=== PATIENT | male | born 1930 | race Caucasian/White ===

== ENCOUNTER 2018-03-06 18:18 | Inpatient (IN) ==
[2018-03-06] MEDS ORDERED: HYDROmorphone PF Inj 0.5 MG/0.5 ML Syringe IV.PUSH STA (18:40)
--- NOTE | 2018-03-06 18:40 | ED ---
HPI General Chief Complaint: Fall Stated Complaint: Evac/Fall Time Seen by Provider: 03/06/18 18:27 Source: patient Mode of arrival: EMS Limitations: no limitations History of Present Illness HPI Narrative: 87-year-old male with history of hypertension, atrial fib, hyperlipidemia, GERD, and questionable COPD presents emergency department via evac for evaluation of left hip pain that started after a trip and fall that occurred just prior to arrival. Patient states he tripped and fell landing on his left hip. EVAC gave patient 10 mg morphine prior to arrival. Denies head or neck trauma. Denies neck or back pain. He denies numbness or tingling of the extremities. States his pain is moderate to severe, worse with movement. Currently, position of comfort is leg externally rotated with knee slightly flexed. MD complaint: fall Related Data Home Medications Medication Instructions Recorded Confirmed apixaban [Eliquis] 2.5 mg PO BID 03/06/18 03/06/18 atorvastatin 40 mg PO DAILY 03/06/18 03/06/18 fenofibrate 40 mg PO DAILY 03/06/18 03/06/18 losartan 25 mg PO DAILY 03/06/18 03/06/18 metoprolol tartrate 25 mg PO BID 03/06/18 03/06/18 pantoprazole [Protonix] 40 mg PO DAILY 03/06/18 03/06/18 sertraline 50 mg PO DAILY 03/06/18 03/06/18 Allergies Allergy/AdvReac Type Severity Reaction Status Date / Time No Known Allergies Allergy Unverified 03/06/18 18:37 Review of Systems ROS: all other systems reviewed are negative PMFSH Medical History Medical History A-fib (Acute) CAMELIA (acute kidney injury) (Acute) Abdominal pain (Acute) HLD (hyperlipidemia) (Acute) Hypertension (Acute) SunDown syndrome (Acute) Surgical history unknown (Acute) Family History Family History Other Family history normal Social History Social History Substance History: No History of Abuse Second Hand Smoke Exposure: No Smoking Status: Never smoker How Often Do You Have a Drink Containing Alcohol: 4 or more times a week Recent Travel in [facility] [[email or web address]] within the Last 8 Weeks: No Recent Out of Country Travel within the Last 8 Weeks: No Immunization History Tetanus Immunization: Unsure Hx Influenza Vaccine This Season: Yes Exam Narrative Exam Narrative: GENERAL: Well-developed, well-nourished SKIN: Focused skin assessment warm/dry. HEAD: Atraumatic. Normocephalic. EYES: Pupils equal and round. No scleral icterus. No injection or drainage. ENT: No nasal bleeding or discharge. Mucous membranes pink and moist. NECK: Trachea midline. No JVD. CARDIOVASCULAR: Regular rate and rhythm. No murmur appreciated. RESPIRATORY: No accessory muscle use. Faint rhonchi breath sounds equal bilaterally. MUSCULOSKELETAL: No obvious deformities. No clubbing. No cyanosis. No edema. Left hip tender to palpation, left leg externally rotated and slightly shortened with knee slightly flexed, dorsalis pedis pulses present and bounding , neurovascularly intact bilateral lower extremities NEUROLOGICAL: Awake and alert. No obvious cranial nerve deficits. Motor grossly within normal limits. Normal speech. PSYCHIATRIC: Appropriate mood and affect; insight and judgment normal. Course Initial Documented Vital Signs Temperature 98.6 F 03/06/18 18:25 Pulse Rate 103 H 03/06/18 18:25 Respiratory Rate 14 03/06/18 18:25 Blood Pressure 232/152 H 03/06/18 18:25 Pulse Oximetry 97 03/06/18 18:25 Last Documented Vital Signs Temperature 98 F 03/07/18 08:00 Pulse Rate 79 03/07/18 10:21 Respiratory Rate 18 03/07/18 10:21 Blood Pressure 121/75 03/07/18 08:00 Pulse Oximetry 93 L 03/07/18 04:00 Medical Decision Making [facility] Narrative Medical decision making narrative: 87-year-old male presents emergency department via EVAC after a mechanical fall that occurred just prior to arrival. EVAC states patient has a history of hypertension, atrial fibrillation , hyperlipidemia, GERD, and questionable COPD. Vital signs demonstrate elevated blood pressure. Will monitor. Hydralazine administered. Patient given 10 mg morphine by EVAC. Patient continues to have moderate to severe pain. Ativan and Dilaudid administered for pain. CXR is concerning for PNA. Will treat with rocephin and azithromycin. Labs significant for WBCs at 14.6. Remaining labs stable. I spoke with Dr. Payne who recommended hold Bennie. I advised him that he may have pneumonia and will be treated as such. He stated that is patient may be ready tomorrow afternoon for surgery that he should remain NPO afte rmidnight , otherwise, medically stabilize, then surgery. Traction for comfort. Differential Diagnosis Differential Diagnosis: Left hip fracture, left leg fracture, left hip displacement Lab Data Result diagrams: 03/07/18 03:23 03/07/18 05:53 Lab Results 03/06/18 03/06/18 03/06/18 Range/Units 18:40 18:40 18:40 WBC 14.6 H (4.0-11.0) th/mm3 RBC 3.95 L (4.50-5.90) mil/mm3 Hgb 11.9 L (13.0-17.0) gm/dL Hct 36.3 L (39.0-51.0) % MCV 91.9 (80.0-100.0) fL MCH 30.1 (27.0-34.0) pg MCHC 32.7 (32.0-36.0) % RDW 15.0 (11.6-17.2) % Plt Count 274 (150-450) th/mm3 MPV 9.7 (7.0-11.0) fL Neut % (Auto) 90.2 H (16.0-70.0) % Lymph % (Auto) 4.2 L (9.0-44.0) % [place] % (Auto) 4.9 (0.0-8.0) % Eos % (Auto) 0.4 (0.0-4.0) % Baso % (Auto) 0.3 (0.0-2.0) % Neut # (Auto) 13.2 H (1.8-7.7) th/mm3 Lymph # (Auto) 0.6 L (1.0-4.8) th/mm3 [place] # (Auto) 0.7 (0.0-0.9) th/mm3 Eos # (Auto) 0.1 (0.0-0.4) th/mm3 Baso # (Auto) 0.0 (0.0-0.2) th/mm3 WBC Differential . Differential Comment Auto diff final PT 12.1 H (9.8-11.6) sec INR 1.2 Ratio APTT 28.1 (24.3-30.1) sec Sodium 141 (136-145) meq/L Potassium 4.0 (3.5-5.1) meq/L Chloride 108 H (98-107) meq/L Carbon Dioxide 25.9 (21.0-32.0) meq/L Anion Gap 7 (5-15) meq/L BUN 15 (7-18) mg/dL Creatinine 1.03 (0.60-1.30) mg/dL Estimated GFR 68 L (>89) mL/min Random Glucose 89 (74-106) mg/dL Calcium 8.2 L (8.5-10.1) mg/dL Total Bilirubin 0.6 (0.2-1.0) mg/dL AST 23 (15-37) U/L ALT 17 (12-78) U/L Alkaline Phosphatase 64 (45-117) U/L Total Protein 6.3 L (6.4-8.2) g/dL Albumin 3.2 L (3.4-5.0) g/dL Urine Color (Yellw/Straw) Urine Clarity (Clear) Urine pH (5.0-8.5) Ur Specific [place] (1.002-1.035) Urine Protein (Neg-Trace) mg/dL Urine Glucose (UA) (Negative) mg/dL Urine Ketones (Negative) mg/dL Urine Occult Blood (Negative) Urine Nitrate (Negative) Urine Bilirubin (Negative) Urine Urobilinogen (Less than 2) mg/dL Ur Leukocyte Esterase (Negative) Urine RBC (0-3) /hpf Urine WBC (0-5) /hpf Ur Squamous Epith Cells (0-5) /hpf Hyaline Casts (0-3) /lpf Micro UA Comment Urine Culture Comments Blood Type Blood Type Recheck Antibody Screen 03/06/18 03/07/18 03/07/18 Range/Units 20:25 03:23 03:23 WBC 11.2 H (4.0-11.0) th/mm3 RBC 3.88 L (4.50-5.90) mil/mm3 Hgb 12.1 L (13.0-17.0) gm/dL Hct 35.3 L (39.0-51.0) % MCV 90.9 (80.0-100.0) fL MCH 31.1 (27.0-34.0) pg MCHC 34.2 (32.0-36.0) % RDW 14.8 (11.6-17.2) % Plt Count 270 (150-450) th/mm3 MPV 9.2 (7.0-11.0) fL Neut % (Auto) 86.8 H (16.0-70.0) % Lymph % (Auto) 5.5 L (9.0-44.0) % [place] % (Auto) 6.9 (0.0-8.0) % Eos % (Auto) 0.2 (0.0-4.0) % Baso % (Auto) 0.6 (0.0-2.0) % Neut # (Auto) 9.7 H (1.8-7.7) th/mm3 Lymph # (Auto) 0.6 L (1.0-4.8) th/mm3 [place] # (Auto) 0.8 (0.0-0.9) th/mm3 Eos # (Auto) 0.0 (0.0-0.4) th/mm3 Baso # (Auto) 0.1 (0.0-0.2) th/mm3 WBC Differential . Differential Comment Auto diff final PT (9.8-11.6) sec INR Ratio APTT (24.3-30.1) sec Sodium (136-145) meq/L Potassium (3.5-5.1) meq/L Chloride (98-107) meq/L Carbon Dioxide (21.0-32.0) meq/L Anion Gap (5-15) meq/L BUN (7-18) mg/dL Creatinine (0.60-1.30) mg/dL Estimated GFR (>89) mL/min Random Glucose (74-106) mg/dL Calcium (8.5-10.1) mg/dL Total Bilirubin (0.2-1.0) mg/dL AST (15-37) U/L ALT (12-78) U/L Alkaline Phosphatase (45-117) U/L Total Protein (6.4-8.2) g/dL Albumin (3.4-5.0) g/dL Urine Color Yellow (Yellw/Straw) Urine Clarity Clear (Clear) Urine pH 7.0 (5.0-8.5) Ur Specific [place] 1.017 (1.002-1.035) Urine Protein Negative (Neg-Trace) mg/dL Urine Glucose (UA) Negative (Negative) mg/dL Urine Ketones Negative (Negative) mg/dL Urine Occult Blood Negative (Negative) Urine Nitrate Negative (Negative) Urine Bilirubin Negative (Negative) Urine Urobilinogen 4 or greater (Less than 2) mg/dL Ur Leukocyte Esterase Negative (Negative) Urine RBC 1 (0-3) /hpf Urine WBC 1 (0-5) /hpf Ur Squamous Epith Cells <1 (0-5) /hpf Hyaline Casts 3 (0-3) /lpf Micro UA Comment Culture not ind Urine Culture Comments Culture not ind Blood Type A Positive Blood Type Recheck Required Antibody Screen Negative 03/07/18 Range/Units 05:53 WBC (4.0-11.0) th/mm3 RBC (4.50-5.90) mil/mm3 Hgb (13.0-17.0) gm/dL Hct (39.0-51.0) % MCV (80.0-100.0) fL MCH (27.0-34.0) pg MCHC (32.0-36.0) % RDW (11.6-17.2) % Plt Count (150-450) th/mm3 MPV (7.0-11.0) fL Neut % (Auto) (16.0-70.0) % Lymph % (Auto) (9.0-44.0) % [place] % (Auto) (0.0-8.0) % Eos % (Auto) (0.0-4.0) % Baso % (Auto) (0.0-2.0) % Neut # (Auto) (1.8-7.7) th/mm3 Lymph # (Auto) (1.0-4.8) th/mm3 [place] # (Auto) (0.0-0.9) th/mm3 Eos # (Auto) (0.0-0.4) th/mm3 Baso # (Auto) (0.0-0.2) th/mm3 WBC Differential Differential Comment PT (9.8-11.6) sec INR Ratio APTT (24.3-30.1) sec Sodium 141 (136-145) meq/L Potassium 4.3 (3.5-5.1) meq/L Chloride 108 H (98-107) meq/L Carbon Dioxide 24.3 (21.0-32.0) meq/L Anion Gap 9 (5-15) meq/L BUN 15 (7-18) mg/dL Creatinine 0.98 (0.60-1.30) mg/dL Estimated GFR 72 L (>89) mL/min Random Glucose 89 (74-106) mg/dL Calcium 8.5 (8.5-10.1) mg/dL Total Bilirubin (0.2-1.0) mg/dL AST (15-37) U/L ALT (12-78) U/L Alkaline Phosphatase (45-117) U/L Total Protein (6.4-8.2) g/dL Albumin (3.4-5.0) g/dL Urine Color (Yellw/Straw) Urine Clarity (Clear) Urine pH (5.0-8.5) Ur Specific [place] (1.002-1.035) Urine Protein (Neg-Trace) mg/dL Urine Glucose (UA) (Negative) mg/dL Urine Ketones (Negative) mg/dL Urine Occult Blood (Negative) Urine Nitrate (Negative) Urine Bilirubin (Negative) Urine Urobilinogen (Less than 2) mg/dL Ur Leukocyte Esterase (Negative) Urine RBC (0-3) /hpf Urine WBC (0-5) /hpf Ur Squamous Epith Cells (0-5) /hpf Hyaline Casts (0-3) /lpf Micro UA Comment Urine Culture Comments Blood Type Blood Type Recheck Antibody Screen Imaging Data Radiologist's impression: Chest X-Ray 03/06/18 18:37 CONCLUSION: Patchy parenchymal consolidation of both lungs, upper lobe predominant on the right and more generalized but with a basilar predominance on the left. Femur X-Ray 03/06/18 18:37 CONCLUSION: Acute fracture distally of the femoral neck with medial angulation deformity. Pelvis X-Ray 03/06/18 18:37 CONCLUSION: Intact pelvis. Discharge Plan Discharge Disposition Patient Disposition: 30 Still Patient Discharge Condition Condition: Stable Discharge Details Diagnosis: Femur fracture, left, Pneumonia Physicians Team ED Provider: Yimi Uribe ED Midlevel Provider: Anay Birch Primary Care Provider: Jigna Harrison Attending Provider: Ruddy Maldonado Other Providers: Maulik Payne Status ED Status: Left Department Discharge Information Discharge Date/Time: 03/07/18 01:24
[2018-03-06 19:23] LABS: Activated Partial Thrombo Time 28.1 sec (24.3-30.1); INR 1.2 Ratio; Prothrombin Time 12.1 sec (9.8-11.6)
--- NOTE | 2018-03-06 19:31 | XR ---
EXAM DATE: 03/06/2018 7:24 PM EDT AGE/SEX: 87 years / Male INDICATIONS: Evaluate for pneumonia, pneumothorax, or commiuncable disease. CLINICAL DATA: This is the patient's initial encounter. Patient reports that signs and symptoms have been present for 1 day and indicates a pain score of 0/10. MEDICAL/SURGICAL HISTORY: None. None. COMPARISON: [facility] – [place], CTA THORACIC ABDOMINAL AORTA W 3D RECON, 01/23/2018. [facility] [place], CHEST SINGLE AP, 01/23. . FINDINGS: Patchy bilateral parenchymal consolidation present, fairly diffuse on the left and upper lobe predomi nant on the right. No pleural effusion seen. No pneumothorax. Patient has old left rib fractures. Heart size upper limits of normal, similar to before. CONCLUSION: Patchy parenchymal consolidation of both lungs, upper lobe predominant on the right and more generali zed but with a basilar predominance on the left. Electronically signed by: Elder Woodward MD 03/06/2018 7:30 PM EDT
[2018-03-06 19:32] LABS: Baso % (Auto) 0.3 % (0.0-2.0); Eos # (Auto) 0.1 th/mm3 (0.0-0.4); Eos % (Auto) 0.4 % (0.0-4.0); Hematocrit 36.3 % (39.0-51.0); Hemoglobin 11.9 gm/dL (13.0-17.0); Lymph # (Auto) 0.6 th/mm3 (1.0-4.8); Lymph % (Auto) 4.2 % (9.0-44.0); Mean Corpuscular HGB Conc 32.7 % (32.0-36.0); Mean Corpuscular Hemoglobin 30.1 pg (27.0-34.0); Mean Corpuscular Volume 91.9 fL (80.0-100.0); Mean Platelet Volume 9.7 fL (7.0-11.0); Mono # (Auto) 0.7 th/mm3 (0.0-0.9); Mono % (Auto) 4.9 % (0.0-8.0); Neut # (Auto) 13.2 th/mm3 (1.8-7.7); Neut % (Auto) 90.2 % (16.0-70.0); Platelet Count 274 th/mm3 (150-450); Red Blood Count 3.95 mil/mm3 (4.50-5.90); White Blood Count 14.6 th/mm3 (4.0-11.0)
[2018-03-06 19:33] LABS: Albumin 3.2 g/dL (3.4-5.0); Anion Gap 7 meq/L (5-15); Aspartate Aminotransferase 23 U/L (15-37); Blood Urea Nitrogen 15 mg/dL (7-18); Calcium 8.2 mg/dL (8.5-10.1); Carbon Dioxide 25.9 meq/L (21.0-32.0); Chloride 108 meq/L (98-107); Glomerular Filtration Rate 68 mL/min (>89); Glucose,Random 89 mg/dL (74-106); Sodium 141 meq/L (136-145)
[2018-03-06 19:35] LABS: Alanine Aminotransferase 17 U/L (12-78)
[2018-03-06 19:37] LABS: Alkaline Phosphatase 64 U/L (45-117); Total Protein 6.3 g/dL (6.4-8.2)
--- NOTE | 2018-03-06 19:39 | XR ---
EXAM DATE: 03/06/2018 7:27 PM EDT AGE/SEX: 87 years / Male INDICATIONS: Left hip and pelvic pain post fall today CLINICAL DATA: This is the patient's initial encounter. Patient reports that signs and symptoms have been present for 1 day and indicates a pain score of 10/10. MEDICAL/SURGICAL HISTORY: None. None. COMPARISON: [facility] [place], FEMUR LEFT 2V, 03/06/2018. . FINDINGS: The bony pelvis is intact and has normal morphology. No subluxation of either hip. 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 CONCLUSION: Intact pelvis. Electronically signed by: Elder Woodward MD 03/06/2018 7:38 PM EDT
--- NOTE | 2018-03-06 19:40 | XR ---
EXAM DATE: 03/06/2018 7:25 PM EDT AGE/SEX: 87 years / Male INDICATIONS: Left proximal femur pain post fall today CLINICAL DATA: This is the patient's initial encounter. Patient reports that signs and symptoms have been present for 1 day and indicates a pain score of 10/10. MEDICAL/SURGICAL HISTORY: None. None. COMPARISON: [facility] [place], PELVIS AP 1V, 03/06/2018. . FINDINGS: Supratrochanteric fracture seen of the left femoral neck with medial angulation deformity. The head/a rticular surfaces appear intact. No subluxations. Atherosclerotic femoral artery. CONCLUSION: Acute fracture distally of the femoral neck with medial angulation deformity. Electronically signed by: Elder Woodward MD 03/06/2018 7:39 PM EDT
[2018-03-06] MEDS ORDERED: Azithromycin Inj 500 MG in Sodium Chlor 0.9% Inj 250 ML IV.SIG ONE (19:58)
[2018-03-06 20:50] LABS: Bilirubin,Urine Negative (Negative); Clarity,Urine Clear (Clear); Color,Urine Yellow (Yellw/Straw); Glucose,Urine (UA) Negative (Negative); Hyaline Casts,Urine 3 /lpf (0-3); Leukocyte Esterase,Urine Negative (Negative); Nitrite,Urine Negative (Negative); Specific Gravity,Urine 1.017 (1.002-1.035); Squamous Epithelial Cell,Urine <1 /hpf (0-5); Urobilinogen,Urine 4 or Greater mg/dL (Less than 2)
[2018-03-06] MEDS ORDERED: Bisacodyl 10 MG Supp RECTAL PRN (21:26)
--- NOTE | 2018-03-06 22:37 | P.HP ---
History of Present Illness Service: [facility] Primary Care Physician: Jigna Harrison MD History of Present Illness: 87-year-old male with a past medical history significant for hypertension, atrial fibrillation anticoagulated on Eliquis and hyperlipidemia presents to the emergency department for the evaluation of a fall. The patient reports that he tripped and fell landing on his left hip. He denies any head or neck trauma. No numbness or tingling of the extremities. Complains of severe pain in his left hip. Denies chest pain or shortness of breath. No abdominal pain. No nausea/vomiting/diarrhea. No fever/chills. Inpatient Certification: I certify that the inpatient services were ordered in accordance with Medicare regulations governing the order. This includes certification that hospital inpatient services are reasonable and necessary and in the case of services not specified as inpatient-only under 42 CFR 419.22(n), that they are appropriately provided as inpatient services in accordance to with the 2-midnight benchmark under 43 CFR 412.3(e) Estimated Total Length of Stay (Days): 3 Plans for Post Hospital Care: Not yet determined Review of Systems All other systems reviewed negative except as stated in HPI PMFSH - History History Provided By: Patient, Route Relief Driver / EMT - Medical / Surgical Hx Neg / Unobtainable Surgical History: No Previous Surgery - Medical History Medical History: Medical History (Last Updated 03/06/18 @ 18:37 by Britt Velásquez) A-fib CAMELIA (acute kidney injury) Abdominal pain HLD (hyperlipidemia) Hypertension SunDown syndrome Surgical history unknown - Family History Family History: Family History (Last Updated 03/06/18 @ 22:31 by Maida Carroll MD) Other Family history normal - Tobacco History Smoking Status: Former smoker - Alcohol History How Often Do You Have a Drink Containing Alcohol: Monthly or less - Substance Use History Substance History: No History of Abuse - Travel History Recent Travel in the [place] Within the Last 8 Weeks: No Recent Travel Out of the Country Within the Last 8 Weeks: No - Immunization History Tetanus Immunization: Unsure Hx Influenza Vaccine This Season: Yes Medications and Allergies Active Medications: Active Medications Al Hydroxide/Mg Hydroxide (Milk Of Magnyasmin Liq) 30 ml PO Q12H PRN PRN Reason: Mild Constipation Albuterol (Duoneb Neb (Albino)) 1 ampul NEB Q6HR NEB ALBINO Last Admin: 03/06/18 21:58 Dose: Not Given Albuterol (Duoneb Neb (Prn)) 1 ampul NEB Q2HR NEB PRN PRN Reason: SHORTNESS OF BREATH/WHEEZING Atorvastatin Calcium (Lipitor) 40 mg PO DAILY [facility] Bisacodyl (Dulcolax Supp) 10 mg RECTAL DAILY PRN PRN Reason: SEVERE CONSITIPATION Fenofibrate (Tricor) 48 mg PO DAILY [facility] Azithromycin 500 mg/ Sodium (Chloride) 250 mls @ 250 mls/hr IV.SIG Q24H ALBINO Ceftriaxone Sodium 1,000 mg/ (Sodium Chloride) 100 mls @ 200 mls/hr IV.SIG Q24H ALBINO Lactulose (Lactulose Liq) 30 ml PO DAILY PRN PRN Reason: SEVERE CONSITIPATION Losartan Potassium (Cozaar) 25 mg PO DAILY [facility] Metoprolol Tartrate (Lopressor) 25 mg PO BID [facility] Morphine Sulfate (Morphine Inj) 2 mg IV.PUSH Q3H PRN PRN Reason: pain > 4 Pantoprazole Sodium (Protonix) 40 mg PO DAILY [facility] Prochlorperazine Edisylate (Compazine Inj) 5 mg IV.PUSH Q4H PRN PRN Reason: NAUSEA OR VOMITING Sennosides (Senokot) 17.2 mg PO Q12H PRN PRN Reason: Moderate Constipation Sertraline HCl (Zoloft) 50 mg PO DAILY [facility] Sodium Chloride (Ns Flush) 2 ml IV.FLUSH UNSCH PRN PRN Reason: FLUSH AFTER USING IV ACCESS Allergies Allergy/AdvReac Type Severity Reaction Status Date / Time No Known Allergies Allergy Unverified 03/06/18 18:37 Home Medications Medication Instructions Recorded Confirmed Type apixaban [Eliquis] 2.5 mg PO BID 03/06/18 03/06/18 History atorvastatin 40 mg PO DAILY 03/06/18 03/06/18 History fenofibrate 40 mg PO DAILY 03/06/18 03/06/18 History losartan 25 mg PO DAILY 03/06/18 03/06/18 History metoprolol tartrate 25 mg PO BID 03/06/18 03/06/18 History pantoprazole [Protonix] 40 mg PO DAILY 03/06/18 03/06/18 History sertraline 50 mg PO DAILY 03/06/18 03/06/18 History Exam Vital signs: Vital Signs 03/06/18 18:25 03/06/18 18:29 03/06/18 20:38 Temperature 98.6 F Pulse Rate 103 H 81 97 H Respiratory Rate 14 18 20 Blood Pressure 232/152 H 186/102 H 193/89 H Pulse Oximetry 97 97 94 L 03/06/18 20:40 Temperature Pulse Rate Respiratory Rate 18 Blood Pressure Pulse Oximetry Intake & Output 03/06/18 03/06/18 03/07/18 06:59 18:59 06:59 Output Total 150 / 150 Balance -150 / -150 Weight 99.79 kg Output: Urine 150 / 150 Narrative: Gen.: No acute distress Head: Normocephalic. Atraumatic. EENT: Pupils equal round and reactive to light. Nose without drainage. Airway intact. Throat without injection. Cardiovascular: Regular rate and rhythm. No murmurs, rubs or gallops. Respiratory: Lungs clear to auscultation bilaterally. No wheezes or rhonchi. Abdomen: Soft, nontender, nondistended. No peritoneal signs. Musculoskeletal: Left hip tender to palpation. Left leg externally rotated. Neurovascularly intact. Skin: No obvious rashes or erythema. Neuro: Sensory and motor grossly intact. Cranial nerves II through XII grossly intact. Results - Labs CBC & Chem 7: 03/06/18 18:40 03/06/18 18:40 Labs: Laboratory Results - last 24 hr 03/06/18 03/06/18 03/06/18 18:40 18:40 18:40 WBC 14.6 H RBC 3.95 L Hgb 11.9 L Hct 36.3 L MCV 91.9 MCH 30.1 MCHC 32.7 RDW 15.0 Plt Count 274 MPV 9.7 Neut % (Auto) 90.2 H Lymph % (Auto) 4.2 L [place] % (Auto) 4.9 Eos % (Auto) 0.4 Baso % (Auto) 0.3 Neut # (Auto) 13.2 H Lymph # (Auto) 0.6 L [place] # (Auto) 0.7 Eos # (Auto) 0.1 Baso # (Auto) 0.0 WBC Differential . Differential Comment Auto diff final PT 12.1 H INR 1.2 APTT 28.1 Sodium 141 Potassium 4.0 Chloride 108 H Carbon Dioxide 25.9 Anion Gap 7 BUN 15 Creatinine 1.03 Estimated GFR 68 L Random Glucose 89 Calcium 8.2 L Total Bilirubin 0.6 AST 23 ALT 17 Alkaline Phosphatase 64 Total Protein 6.3 L Albumin 3.2 L Urine Color Urine Clarity Urine pH Ur Specific [place] Urine Protein Urine Glucose (UA) Urine Ketones Urine Occult Blood Urine Nitrate Urine Bilirubin Urine Urobilinogen Ur Leukocyte Esterase Urine RBC Urine WBC Ur Squamous Epith Cells Hyaline Casts Micro UA Comment Urine Culture Comments 03/06/18 20:25 WBC RBC Hgb Hct MCV MCH MCHC RDW Plt Count MPV Neut % (Auto) Lymph % (Auto) [place] % (Auto) Eos % (Auto) Baso % (Auto) Neut # (Auto) Lymph # (Auto) [place] # (Auto) Eos # (Auto) Baso # (Auto) WBC Differential Differential Comment PT INR APTT Sodium Potassium Chloride Carbon Dioxide Anion Gap BUN Creatinine Estimated GFR Random Glucose Calcium Total Bilirubin AST ALT Alkaline Phosphatase Total Protein Albumin Urine Color Yellow Urine Clarity Clear Urine pH 7.0 Ur Specific [place] 1.017 Urine Protein Negative Urine Glucose (UA) Negative Urine Ketones Negative Urine Occult Blood Negative Urine Nitrate Negative Urine Bilirubin Negative Urine Urobilinogen 4 or greater Ur Leukocyte Esterase Negative Urine RBC 1 Urine WBC 1 Ur Squamous Epith Cells <1 Hyaline Casts 3 Micro UA Comment Culture not ind Urine Culture Comments Culture not ind - Imaging Impressions Chest X-Ray 03/06/18 18:37 CONCLUSION: Patchy parenchymal consolidation of both lungs, upper lobe predominant on the right and more generalized but with a basilar predominance on the left. Femur X-Ray 03/06/18 18:37 CONCLUSION: Acute fracture distally of the femoral neck with medial angulation deformity. Pelvis X-Ray 03/06/18 18:37 CONCLUSION: Intact pelvis. Caprini VTE Risk Assessment Caprini VTE Risk Assessment: Moderate/High Risk (score >= 2) Caprini Risk Assessment Model: Point Value = 1 Point Value = 2 Point Value = 3 Point Value = 5 Age 41-60 Minor surgery BMI > 25 kg/m2 Swollen legs Varicose veins or History of unexplained or recurrent spontaneous Oral contraceptives or hormone replacement Sepsis (< 1 month) Serious lung disease, including pneumonia (< 1 month) Abnormal pulmonary function Acute myocardial infarction Congestive heart failure (< 1 month) History of inflammatory bowel disease Medical patient at bed rest Age 61-74 Arthroscopic surgery Major open surgery (> 45 min) Laparoscopic surgery (> 45 min) Malignancy Confined to bed (> 72 hours) Immobilizing plaster cast Central venous access Age >= 75 History of VTE Family history of VTE Factor V Leiden Prothrombin [id number] Lupus anticoagulant Anticardiolipin antibodies Elevated serum homocysteine Heparin-induced thrombocytopenia Other congenital or acquired thrombophilia Stroke (< 1 month) Elective arthroplasty Hip, pelvis, or leg fracture Acute spinal cord injury (< 1 month) Prophylaxis Regimen: Total Risk Factor Score Risk Level Prophylaxis Regimen 0-1 Low Early ambulation 2 Moderate Order ONE of the following: *Sequential Compression Device (SCD) *Heparin 5000 units SQ BID 3-4 Higher Order ONE of the following medications: *Heparin 5000 units SQ TID *Enoxaparin/Lovenox 40 mg SQ daily (WT < 150 kg, CrCl > 30 mL/min) *Enoxaparin/Lovenox 30 mg SQ daily (WT < 150 kg, CrCl > 10-29 mL/min) *Enoxaparin/Lovenox 30 mg SQ BID (WT < 150 kg, CrCl > 30 mL/min) AND/OR *Sequential Compression Device (SCD) 5 or more Highest Order ONE of the following medications: *Heparin 5000 units SQ TID (Preferred with Epidurals) *Enoxaparin/Lovenox 40 mg SQ daily (WT < 150 kg, CrCl > 30 mL/min) *Enoxaparin/Lovenox 30 mg SQ daily (WT < 150 kg, CrCl > 10-29 mL/min) *Enoxaparin/Lovenox 30 mg SQ BID (WT < 150 kg, CrCl > 30 mL/min) AND *Sequential Compression Device (SCD) Assessment and Plan - Plan Assessment/plan: 1. Left hip fracture Femur x-ray significant for acute fracture distally of the femoral neck with medial angulation deformity Orthopedic surgery consulted, appreciate assistance 2. Pneumonia Chest x-ray significant for patchy consolidation of both lungs Azithromycin/Rocephin DuoNebs 3. Atrial fibrillation Continue home metoprolol Holding Eliquis for operative intervention tomorrow 4. Hypertension/hyperlipidemia Continue home medications FEN N.p.o. Electrolytes: Monitor and replete as needed NS at 100 cc/hour Holding pharmacologic anticoagulation for operative intervention
[2018-03-07] MEDS: Sod Chloride 0.9% Inj 1,000 ML IV.CONT SCH ×2 (00:58→08:38)
[2018-03-07] MEDS ORDERED: Chlorhexidine Gluconate 2% 1 Pack (2 Cloths) TOPICAL SCH (01:30)
[2018-03-07] MEDS: Morphine Inj 4 MG/ML Vial IV.PUSH PRN ×3 (01:37→12:54)
[2018-03-07] MEDS ORDERED: Sodium Chlor 0.9% Inj 500 ML IV.SIG SCH (02:00)
[2018-03-07 03:37] LABS: Baso # (Auto) 0.1 th/mm3 (0.0-0.2); Baso % (Auto) 0.6 % (0.0-2.0); Eos % (Auto) 0.2 % (0.0-4.0); Hematocrit 35.3 % (39.0-51.0); Hemoglobin 12.1 gm/dL (13.0-17.0); Lymph # (Auto) 0.6 th/mm3 (1.0-4.8); Lymph % (Auto) 5.5 % (9.0-44.0); Mean Corpuscular HGB Conc 34.2 % (32.0-36.0); Mean Corpuscular Hemoglobin 31.1 pg (27.0-34.0); Mean Corpuscular Volume 90.9 fL (80.0-100.0); Mean Platelet Volume 9.2 fL (7.0-11.0); Mono # (Auto) 0.8 th/mm3 (0.0-0.9); Mono % (Auto) 6.9 % (0.0-8.0); Neut # (Auto) 9.7 th/mm3 (1.8-7.7); Neut % (Auto) 86.8 % (16.0-70.0); Platelet Count 270 th/mm3 (150-450); Red Blood Count 3.88 mil/mm3 (4.50-5.90); Red Cell Distribution Width 14.8 % (11.6-17.2); White Blood Count 11.2 th/mm3 (4.0-11.0)
--- NOTE | 2018-03-07 06:11 | P.CONOP ---
[facility] Orthopedics Consult Note - [facility] Consult date: 03/07/18 Requesting physician: Maida Carroll Consult reason: fracture Chief complaint: Left Hip Fracture, Pneumonia Narrative: This patient is an 87-year-old white male who slipped and fell sustaining an injury to the left hip. He denied loss of consciousness. He was unable to ambulate. He noticed severe pain in the region of his left hip. He was brought to [facility]. X-ray showed evidence of an angulated left proximal femur fracture. He was admitted to the medical service and I have been asked to see him in consultation. The patient on admission was noted to have a mildly elevated white blood cell count and patchy changes on his chest x-ray consistent with acute pneumonia. He has been started on antibiotic. The patient is normally on anticoagulants. The patient is on Eliquis. Review of Systems Constitutional: Denies anorexia, Denies body ache(s), Denies chills, Denies daytime sleepiness, Denies excessive sweating, Denies fatigue, Denies fever(s), Denies headache(s), Denies increased appetite, Denies lack of energy, Denies malaise, Denies night sweats, Denies weakness, Denies weight gain, Denies weight loss, Denies other Eyes: Denies blind spots, Denies blurry vision, Denies bulging eyes, Denies change in vision, Denies double vision, Denies discharge, Denies dry eyes, Denies floaters, Denies irritation, Denies itchy eyes, Denies loss of vision, Denies pain, Denies requires corrective lenses, Denies sensitivity to light, Denies other Ears, Nose, Mouth, and Throat: Denies abnormal hearing, Denies bleeding gums, Denies bad breath, Denies change in voice, Denies dental pain, Denies difficulty swallowing, Denies dizziness, Denies dry mouth, Denies ear discharge , Denies ear pain, Denies facial pain, Denies headache(s), Denies hearing loss, Denies hoarseness, Denies lip swelling, Denies nosebleed, Denies mouth lesions, Denies mouth pain, Denies nasal congestion, Denies nasal discharge, Denies nasal obstruction, Denies nasal trauma, Denies neck lump, Denies neck pain, Denies nose pain, Denies pain with swallowing, Denies poor balance, Denies post nasal drip, Denies ringing in the ears, Denies sinus pain, Denies sinus pressure , Denies sore throat, Denies throat swelling, Denies tongue swelling, Denies other Cardiovascular: Denies chest pain, Denies chest pain at rest Respiratory: Reports chest congestion, Denies shortness of breath Gastrointestinal: Denies abdominal pain, Denies belching, Denies black, tarry stools Genitourinary: Denies blood in urine, Denies decreased urination Musculoskeletal: Reports other (Left hip pain) Skin/Breast: Denies bleeding lesions, Denies change in skin color Neurologic: Reports abnormal hearing, Denies abnormal movements, Denies abnormal speech Psychiatric: Denies abnormal sleep pattern, Denies anxiety Hematologic/Lymphatic: Reports easy bleeding, Reports easy bruising PMFSH - History History Provided By: Patient - Medical History Medical History: Medical History (Last Updated 03/06/18 @ 18:37 by Britt Velásquez) A-fib CAMELIA (acute kidney injury) Abdominal pain HLD (hyperlipidemia) Hypertension SunDown syndrome Surgical history unknown - Family History Family History: Family History (Last Updated 03/06/18 @ 22:31 by Maida Carroll MD) Other Family history normal - Tobacco History Second Hand Smoke Exposure: No Smoking Status: Never smoker - Alcohol History How Often Do You Have a Drink Containing Alcohol: 4 or more times a week - Substance Use History Substance History: No History of Abuse - Travel History Recent Travel in the [place] Within the Last 8 Weeks: No Recent Travel Out of the Country Within the Last 8 Weeks: No - Immunization History Tetanus Immunization: Unsure Hx Influenza Vaccine This Season: Yes Medications and Allergies Active Medications: Active Medications Al Hydroxide/Mg Hydroxide (Milk Of Magnyasmin Liq) 30 ml PO Q12H PRN PRN Reason: Mild Constipation Albuterol (Duoneb Neb (Albino)) 1 ampul NEB Q6HR NEB ALBINO Last Admin: 03/07/18 03:31 Dose: Not Given Albuterol (Duoneb Neb (Prn)) 1 ampul NEB Q2HR NEB PRN PRN Reason: SHORTNESS OF BREATH/WHEEZING Atorvastatin Calcium (Lipitor) 40 mg PO DAILY ALBINO Bisacodyl (Dulcolax Supp) 10 mg RECTAL DAILY PRN PRN Reason: SEVERE CONSITIPATION Chlorhexidine Gluconate (Chlorhexidine 2% Cloth) 3 pack [employer] [facility] Stop: 03/10/18 01:22 Fenofibrate (Tricor) 48 mg PO DAILY [facility] Azithromycin 500 mg/ Sodium (Chloride) 250 mls @ 250 mls/hr IV.SIG Q24H [facility] Ceftriaxone Sodium 1,000 mg/ (Sodium Chloride) 100 mls @ 200 mls/hr IV.SIG Q24H [facility] Sodium Chloride (Ns Inj) 1,000 mls @ 100 mls/hr IV.CONT .Q10H [facility] Last Admin: 03/07/18 00:58 Dose: 100 mls/hr Lactated Ringer's (Lr 1000 Ml Inj) 1,000 mls @ 30 mls/hr IV.SIG .Q24H [facility] Stop: 03/10/18 01:22 Sodium Chloride (Ns Inj) 500 mls @ 30 mls/hr IV.SIG .Q10H [facility] Stop: 03/10/18 01:22 Lactulose (Lactulose Liq) 30 ml PO DAILY PRN PRN Reason: SEVERE CONSITIPATION Losartan Potassium (Cozaar) 25 mg PO DAILY [facility] Metoprolol Tartrate (Lopressor) 25 mg PO BID [facility] Morphine Sulfate (Morphine Inj) 2 mg IV.PUSH Q3H PRN PRN Reason: pain > 4 Last Admin: 03/07/18 01:37 Dose: 2 mg Pantoprazole Sodium (Protonix) 40 mg PO DAILY [facility] Povidone Iodine (Betadine 5% Antisepsis Kit) 1 applicatio EACH [employer] [facility] Stop: 03/10/18 01:22 Prochlorperazine Edisylate (Compazine Inj) 5 mg IV.PUSH Q4H PRN PRN Reason: NAUSEA OR VOMITING Sennosides (Senokot) 17.2 mg PO Q12H PRN PRN Reason: Moderate Constipation Sertraline HCl (Zoloft) 50 mg PO DAILY [facility] Sodium Chloride (Ns Flush) 2 ml IV.FLUSH UNSCH PRN PRN Reason: FLUSH AFTER USING IV ACCESS Last Admin: 03/07/18 01:38 Dose: 2 ml Allergies Allergy/AdvReac Type Severity Reaction Status Date / Time No Known Allergies Allergy Unverified 03/06/18 18:37 Home Medications Medication Instructions Recorded Confirmed Type apixaban [Eliquis] 2.5 mg PO BID 03/06/18 03/06/18 History atorvastatin 40 mg PO DAILY 03/06/18 03/06/18 History fenofibrate 40 mg PO DAILY 03/06/18 03/06/18 History losartan 25 mg PO DAILY 03/06/18 03/06/18 History metoprolol tartrate 25 mg PO BID 03/06/18 03/06/18 History pantoprazole [Protonix] 40 mg PO DAILY 03/06/18 03/06/18 History sertraline 50 mg PO DAILY 03/06/18 03/06/18 History Exam Vital signs: Vital Signs 03/06/18 18:25 03/06/18 18:29 03/06/18 20:38 Temperature 98.6 F Pulse Rate 103 H 81 97 H Respiratory Rate 14 18 20 Blood Pressure 232/152 H 186/102 H 193/89 H Pulse Oximetry 97 97 94 L 03/06/18 20:40 03/07/18 00:00 03/07/18 01:15 Temperature 98.2 F 98.3 F Pulse Rate 94 H 99 H Respiratory Rate 18 18 17 Blood Pressure 169/70 H 186/85 H Pulse Oximetry 96 93 L 03/07/18 04:00 Temperature 97.5 F L Pulse Rate 83 Respiratory Rate 17 Blood Pressure 167/79 H Pulse Oximetry 93 L Intake & Output 03/06/18 03/06/18 03/07/18 06:59 18:59 06:59 Output Total 150 / 150 Balance -150 / -150 Weight 99.79 kg 99.79 kg Output: Urine 150 / 150 Other: Date of Last Bowel Movement 03/06/18 Weight On Admission 99.79 kg Narrative: Gen.: No acute distress Head: Normocephalic. Atraumatic. EENT: Pupils equal round and reactive to light. Nose without drainage. Airway intact. Throat without injection. Cardiovascular: Regular rate and rhythm. No murmurs, rubs or gallops. Respiratory: Lungs clear to auscultation bilaterally. No wheezes or rhonchi. Abdomen: Soft, nontender, nondistended. No peritoneal signs. Musculoskeletal: Left hip tender to palpation. Left leg externally rotated. Neurovascularly intact. Skin: No obvious rashes or erythema. Neuro: Sensory and motor grossly intact. Cranial nerves II through XII grossly intact. Results - Labs Result Diagrams: 03/07/18 03:23 03/06/18 18:40 Labs: Laboratory Results - last 24 hr 03/06/18 03/06/18 03/06/18 18:40 18:40 18:40 WBC 14.6 H RBC 3.95 L Hgb 11.9 L Hct 36.3 L MCV 91.9 MCH 30.1 MCHC 32.7 RDW 15.0 Plt Count 274 MPV 9.7 Neut % (Auto) 90.2 H Lymph % (Auto) 4.2 L [place] % (Auto) 4.9 Eos % (Auto) 0.4 Baso % (Auto) 0.3 Neut # (Auto) 13.2 H Lymph # (Auto) 0.6 L [place] # (Auto) 0.7 Eos # (Auto) 0.1 Baso # (Auto) 0.0 WBC Differential . Differential Comment Auto diff final PT 12.1 H INR 1.2 APTT 28.1 Sodium 141 Potassium 4.0 Chloride 108 H Carbon Dioxide 25.9 Anion Gap 7 BUN 15 Creatinine 1.03 Estimated GFR 68 L Random Glucose 89 Calcium 8.2 L Total Bilirubin 0.6 AST 23 ALT 17 Alkaline Phosphatase 64 Total Protein 6.3 L Albumin 3.2 L Urine Color Urine Clarity Urine pH Ur Specific [place] Urine Protein Urine Glucose (UA) Urine Ketones Urine Occult Blood Urine Nitrate Urine Bilirubin Urine Urobilinogen Ur Leukocyte Esterase Urine RBC Urine WBC Ur Squamous Epith Cells Hyaline Casts Micro UA Comment Urine Culture Comments Blood Type Blood Type Recheck Antibody Screen 03/06/18 03/07/18 03/07/18 20:25 03:23 03:23 WBC 11.2 H RBC 3.88 L Hgb 12.1 L Hct 35.3 L MCV 90.9 MCH 31.1 MCHC 34.2 RDW 14.8 Plt Count 270 MPV 9.2 Neut % (Auto) 86.8 H Lymph % (Auto) 5.5 L [place] % (Auto) 6.9 Eos % (Auto) 0.2 Baso % (Auto) 0.6 Neut # (Auto) 9.7 H Lymph # (Auto) 0.6 L [place] # (Auto) 0.8 Eos # (Auto) 0.0 Baso # (Auto) 0.1 WBC Differential . Differential Comment Auto diff final PT INR APTT Sodium Potassium Chloride Carbon Dioxide Anion Gap BUN Creatinine Estimated GFR Random Glucose Calcium Total Bilirubin AST ALT Alkaline Phosphatase Total Protein Albumin Urine Color Yellow Urine Clarity Clear Urine pH 7.0 Ur Specific [place] 1.017 Urine Protein Negative Urine Glucose (UA) Negative Urine Ketones Negative Urine Occult Blood Negative Urine Nitrate Negative Urine Bilirubin Negative Urine Urobilinogen 4 or greater Ur Leukocyte Esterase Negative Urine RBC 1 Urine WBC 1 Ur Squamous Epith Cells <1 Hyaline Casts 3 Micro UA Comment Culture not ind Urine Culture Comments Culture not ind Blood Type A Positive Blood Type Recheck Required Antibody Screen Negative - Diagnostic results Imaging: Impressions Chest X-Ray 03/06/18 18:37 CONCLUSION: Patchy parenchymal consolidation of both lungs, upper lobe predominant on the right and more generalized but with a basilar predominance on the left. Femur X-Ray 03/06/18 18:37 CONCLUSION: Acute fracture distally of the femoral neck with medial angulation deformity. This appears to be a base of the neck femoral neck fracture versus peritrochanteric fracture Pelvis X-Ray 03/06/18 18:37 CONCLUSION: Intact pelvis. Assessment and Plan - Problem List (1) Femur fracture, left Code(s): S72.92XA - Unspecified fracture of left femur, initial encounter for closed fracture Status: Acute (2) Pneumonia Code(s): J18.9 - Pneumonia, unspecified organism Status: Acute - Assessment and Plan Fracture left hip, peritrochanteric/base of the neck femoral neck fracture. Pneumonia. Eliquis anticoagulation for atrial fibrillation. PLAN: SURGERY: Open treatment internal fixation left hip fracture with intramedullary dori. CONSENT: There are risks with surgery including infection, bleeding, loss of motion, continued pain, need for further surgery, neurologic or vascular injury. The patient understands these issues and wishes to proceed forward with surgery as outlined above. Surgery today if time available and patient medically stable for surgical treatment
[2018-03-07 06:59] LABS: Calcium 8.5 mg/dL (8.5-10.1); Carbon Dioxide 24.3 meq/L (21.0-32.0); Potassium 4.3 meq/L (3.5-5.1)
[2018-03-07] MEDS: Metoprolol Tartrate 25 MG Tablet PO SCH ×2 (08:30→20:49)
[2018-03-07] MEDS: Fenofibrate 48 MG Tablet PO SCH (08:38)
[2018-03-07] MEDS: Sertraline 50 MG Tablet PO SCH (08:38)
--- NOTE | 2018-03-07 11:01 | P.PNIM ---
Subjective Interval history: FU hip fracture and PNA. Patient states pain is worse with movement but controlled. Plan is for surgery later today. Denies any chest pain or sob. Physical Exam Vital signs: Vital Signs 03/06/18 18:25 03/06/18 18:29 03/06/18 20:38 Temperature 98.6 F Pulse Rate 103 H 81 97 H Respiratory Rate 14 18 20 Blood Pressure 232/152 H 186/102 H 193/89 H Pulse Oximetry 97 97 94 L 03/06/18 20:40 03/07/18 00:00 03/07/18 01:15 Temperature 98.2 F 98.3 F Pulse Rate 94 H 99 H Respiratory Rate 18 18 17 Blood Pressure 169/70 H 186/85 H Pulse Oximetry 96 93 L 03/07/18 04:00 03/07/18 08:00 03/07/18 10:21 Temperature 97.5 F L 98 F Pulse Rate 83 77 79 Respiratory Rate 17 16 18 Blood Pressure 167/79 H 121/75 Pulse Oximetry 93 L Intake & Output 03/06/18 03/07/18 03/07/18 18:59 06:59 18:59 Intake Total 1000 / 1000 Output Total 300 / 300 Balance -300 / -300 1000 / 1000 Weight 99.79 kg 99.7 kg Intake: IV 1000 / 1000 NS Inj 1,000 ML @ 100 mls/hr IV 1000 / 1000 .CONT .Q10H MAN Rx#:[id number] Output: Urine 300 / 300 Other: Date of Last Bowel Movement 03/06/18 03/06/18 Weight On Admission 99.79 kg Results - Labs CBC & Chem 7: 03/07/18 03:23 03/07/18 05:53 Laboratory Results - last 24 hr 03/06/18 03/06/18 03/06/18 18:40 18:40 18:40 WBC 14.6 H RBC 3.95 L Hgb 11.9 L Hct 36.3 L MCV 91.9 MCH 30.1 MCHC 32.7 RDW 15.0 Plt Count 274 MPV 9.7 Neut % (Auto) 90.2 H Lymph % (Auto) 4.2 L [place] % (Auto) 4.9 Eos % (Auto) 0.4 Baso % (Auto) 0.3 Neut # (Auto) 13.2 H Lymph # (Auto) 0.6 L [place] # (Auto) 0.7 Eos # (Auto) 0.1 Baso # (Auto) 0.0 WBC Differential . Differential Comment Auto diff final PT 12.1 H INR 1.2 APTT 28.1 Sodium 141 Potassium 4.0 Chloride 108 H Carbon Dioxide 25.9 Anion Gap 7 BUN 15 Creatinine 1.03 Estimated GFR 68 L Random Glucose 89 Calcium 8.2 L Total Bilirubin 0.6 AST 23 ALT 17 Alkaline Phosphatase 64 Total Protein 6.3 L Albumin 3.2 L Urine Color Urine Clarity Urine pH Ur Specific [place] Urine Protein Urine Glucose (UA) Urine Ketones Urine Occult Blood Urine Nitrate Urine Bilirubin Urine Urobilinogen Ur Leukocyte Esterase Urine RBC Urine WBC Ur Squamous Epith Cells Hyaline Casts Micro UA Comment Urine Culture Comments Blood Type Blood Type Recheck Antibody Screen 03/06/18 03/07/18 03/07/18 20:25 03:23 03:23 WBC 11.2 H RBC 3.88 L Hgb 12.1 L Hct 35.3 L MCV 90.9 MCH 31.1 MCHC 34.2 RDW 14.8 Plt Count 270 MPV 9.2 Neut % (Auto) 86.8 H Lymph % (Auto) 5.5 L [place] % (Auto) 6.9 Eos % (Auto) 0.2 Baso % (Auto) 0.6 Neut # (Auto) 9.7 H Lymph # (Auto) 0.6 L [place] # (Auto) 0.8 Eos # (Auto) 0.0 Baso # (Auto) 0.1 WBC Differential . Differential Comment Auto diff final PT INR APTT Sodium Potassium Chloride Carbon Dioxide Anion Gap BUN Creatinine Estimated GFR Random Glucose Calcium Total Bilirubin AST ALT Alkaline Phosphatase Total Protein Albumin Urine Color Yellow Urine Clarity Clear Urine pH 7.0 Ur Specific [place] 1.017 Urine Protein Negative Urine Glucose (UA) Negative Urine Ketones Negative Urine Occult Blood Negative Urine Nitrate Negative Urine Bilirubin Negative Urine Urobilinogen 4 or greater Ur Leukocyte Esterase Negative Urine RBC 1 Urine WBC 1 Ur Squamous Epith Cells <1 Hyaline Casts 3 Micro UA Comment Culture not ind Urine Culture Comments Culture not ind Blood Type A Positive Blood Type Recheck Required Antibody Screen Negative 03/07/18 05:53 WBC RBC Hgb Hct MCV MCH MCHC RDW Plt Count MPV Neut % (Auto) Lymph % (Auto) [place] % (Auto) Eos % (Auto) Baso % (Auto) Neut # (Auto) Lymph # (Auto) [place] # (Auto) Eos # (Auto) Baso # (Auto) WBC Differential Differential Comment PT INR APTT Sodium 141 Potassium 4.3 Chloride 108 H Carbon Dioxide 24.3 Anion Gap 9 BUN 15 Creatinine 0.98 Estimated GFR 72 L Random Glucose 89 Calcium 8.5 Total Bilirubin AST ALT Alkaline Phosphatase Total Protein Albumin Urine Color Urine Clarity Urine pH Ur Specific [place] Urine Protein Urine Glucose (UA) Urine Ketones Urine Occult Blood Urine Nitrate Urine Bilirubin Urine Urobilinogen Ur Leukocyte Esterase Urine RBC Urine WBC Ur Squamous Epith Cells Hyaline Casts Micro UA Comment Urine Culture Comments Blood Type Blood Type Recheck Antibody Screen - Imaging Impressions Chest X-Ray 03/06/18 18:37 CONCLUSION: Patchy parenchymal consolidation of both lungs, upper lobe predominant on the right and more generalized but with a basilar predominance on the left. Femur X-Ray 03/06/18 18:37 CONCLUSION: Acute fracture distally of the femoral neck with medial angulation deformity. Pelvis X-Ray 03/06/18 18:37 CONCLUSION: Intact pelvis. Assessment and Plan - Plan Left hip fracture Femur x-ray significant for acute fracture distally of the femoral neck with medial angulation deformity Orthopedic surgery consulted, appreciate assistance, plan for surgery later today NPO IVF for hydration Pneumonia Chest x-ray significant for patchy consolidation of both lungs Cont to Azithromycin/Rocephin, transition to Levaquin when no longer npo Cont DuoNebs Atrial fibrillation, chronic Continue home metoprolol Holding Eliquis for operative intervention tomorrow Hypertension/hyperlipidemia Continue home medications, monitor vitals DVT prophylaxis: Chemical per ortho Discussed Condition With: Patient Discharge Planning: Pending surgery
[2018-03-07] MEDS ORDERED: Metoprolol Inj 5 MG/5 ML Vial IV.PUSH ONE (12:00)
[2018-03-07] MEDS ORDERED: Glycopyrrolate Inj 1 MG/5 ML Syringe IV.PUSH ONE (12:00)
[2018-03-07] MEDS ORDERED: Phenylephrine/NS 1000 MCG/10ML Syringe IV.PUSH ONE (12:00)
[2018-03-07] MEDS ORDERED: Neostigmine Inj 5 MG/5 ML Syringe IV.PUSH ONE (12:00)
[2018-03-07] MEDS ORDERED: Lidocaine PF 1% Inj 5 ML Syringe INFILTRATN ONE (12:00)
[2018-03-07] MEDS ORDERED: fentaNYL Citrate Inj 250 MCG/5 ML Ampul ONE (14:39)
[2018-03-07] MEDS ORDERED: Post-op Orders (for Pharmacy) OTHER STA (15:53)
[2018-03-07] MEDS ORDERED: Morphine Inj 4 MG/ML Vial IV.PUSH PRN (15:53)
--- NOTE | 2018-03-07 15:53 | P.OP ---
- Preoperative Diagnosis (1) Femur fracture, left Comment: Femoral neck - Postoperative Diagnosis (1) Femur fracture, left Comment: Femoral neck Date of procedure: 03/07/18 Procedure: Open treatment internal fixation left hip fracture with multiple screws Anesthesia: GETA Surgeon: Maulik Payne MD Animal Trapper: LEATHA Martel Operation and Findings: EBL: 50 cc INDICATION: This patient is an 87-year-old male who fell sustaining an injury to his left hip. Investigative studies shows evidence of a base of the neck/ peritrochanteric fracture of the left hip. He presents for surgical treatment NOTE: Homa Martel PA-C was present for the entire surgical procedure as my field research assistant. In my medical opinion her skill and care was necessary for proper management of this patient PROCEDURE: The patient was brought to the operating room and anesthetized in the supine position. He was placed on the fracture table with the left leg held extended. The opposite leg was in the well leg nunez. The hip fracture was reduced anatomically. The hip and leg was scrubbed with alcohol followed by Hibiclens followed by ChloraPrep. A timeout was done and antibiotics were given within 1 hour time window. A longitudinal incision was made over the lateral aspect of the proximal femur. Multiple guide pins were placed across the femoral neck and into the femoral head. These were drilled on the outer cortex and the proper length screws were advanced. Screw position appeared to be very satisfactory. The overall alignment was excellent. Screw purchase was excellent. Intraoperative x-rays were obtained. Alignment was satisfactory. No complication was noted. The wound was irrigated copiously. Hemostasis was controlled. The fascia was closed with interrupted Vicryl suture, subcutaneous tissue 2-0 Vicryl suture, skin with running intradermal 3-0 Vicryl followed by Steri-Strips and benzoin. A sterile dressing was applied The patient was awakened and taken to the recovery room in satisfactory condition. FINDINGS: Initial x-rays were suspicious for a base of the neck femoral fracture this lined up to be a stable mid cervical fracture closer to the base of the femoral neck. The alignment was excellent. Final fixation was felt to be very satisfactory
[2018-03-07] MEDS ORDERED: *Enalaprilat Inj 1.25 MG/ML Vial IV.PUSH ONE (17:40)
[2018-03-07] MEDS ORDERED: *Labetalol HCl Inj 100 MG/20 ML Vial PERIprocedural Use ONLY IV.PUSH ONE (17:41)
[2018-03-07] MEDS ORDERED: Azithromycin Inj 500 MG in Sodium Chlor 0.9% Inj 250 ML IV.SIG SCH (20:00)
[2018-03-07] MEDS: Multivitamin/Minerals Therapeutic Tablet PO SCH (20:49)
[2018-03-07] MEDS ORDERED: Temazepam 15 MG Capsule PO PRN (21:00)
[2018-03-08] MEDS: Sod Chloride 0.9% Inj 1,000 ML IV.CONT SCH ×3 (01:34→17:24)
[2018-03-08 04:56] LABS: Baso % (Auto) 0.4 % (0.0-2.0); Eos % (Auto) 0.2 % (0.0-4.0); Hematocrit 35.5 % (39.0-51.0); Lymph # (Auto) 0.5 th/mm3 (1.0-4.8); Lymph % (Auto) 4.8 % (9.0-44.0); Mean Corpuscular HGB Conc 33.8 % (32.0-36.0); Mean Corpuscular Hemoglobin 30.8 pg (27.0-34.0); Mean Platelet Volume 9.5 fL (7.0-11.0); Mono # (Auto) 0.7 th/mm3 (0.0-0.9); Mono % (Auto) 6.5 % (0.0-8.0); Neut # (Auto) 9.7 th/mm3 (1.8-7.7); Neut % (Auto) 88.1 % (16.0-70.0); Platelet Count 271 th/mm3 (150-450); Red Cell Distribution Width 14.6 % (11.6-17.2)
[2018-03-08 05:22] LABS: Calcium 8.3 mg/dL (8.5-10.1); Carbon Dioxide 25.2 meq/L (21.0-32.0); Potassium 4.2 meq/L (3.5-5.1)
--- NOTE | 2018-03-08 07:54 | P.PNOP ---
Subjective Interval history: Moderate left hip pain. Frustrated he is in bed. No other concerns. No CP or SOB. Sore throat. Physical Exam Vital signs: Vital Signs 03/07/18 08:00 03/07/18 10:21 03/07/18 12:00 Temperature 98 F 98 F Pulse Rate 77 79 84 Respiratory Rate 16 18 Blood Pressure 121/75 123/63 Pulse Oximetry 98 03/07/18 17:05 03/07/18 17:15 03/07/18 17:30 Temperature 97.9 F Pulse Rate 99 H 88 84 Respiratory Rate 11 L 16 Blood Pressure 216/81 H 190/84 H 179/80 H Pulse Oximetry 96 95 92 L 03/07/18 17:40 03/07/18 17:45 03/07/18 17:50 Temperature Pulse Rate 90 83 73 Respiratory Rate 15 15 16 Blood Pressure 180/89 H 169/78 H 157/71 H Pulse Oximetry 93 L 94 L 94 L 03/07/18 18:00 03/07/18 18:10 03/07/18 20:00 Temperature 97.8 F 97.8 F Pulse Rate 74 75 59 L Respiratory Rate 16 16 18 Blood Pressure 149/63 H 141/68 H 135/71 Pulse Oximetry 96 95 93 L 03/07/18 21:09 03/07/18 23:45 03/08/18 04:00 Temperature 97.8 F 98.4 F Pulse Rate 70 84 82 Respiratory Rate 16 18 18 Blood Pressure 151/70 H 152/67 H Pulse Oximetry 93 L 94 L Intake & Output 03/07/18 03/08/18 03/08/18 18:59 06:59 18:59 Intake Total 2550 / 2550 100 / 100 Output Total 525 / 525 225 / 225 Balance 2024 / 2024 -125 / -125 Weight 99.7 kg Intake: IV 1999 100 / 100 NS Inj 1,000 ML @ 100 mls/hr IV 1999 .CONT .Q10H MAN Rx#:[id number] Ancef Inj 1,000 MG In NS Inj 100 / 100 100 ML @ 200 mls/hr IV.SIG Q6H MAN Rx#:[id number] Anesthesia Amount 550 / 550 Output: Urine 500 / 500 225 / 225 Estimated Blood Loss 25 / 25 Other: Date of Last Bowel Movement 03/06/18 03/04/18 Narrative: Laying in bed Mildly confused LLE Hip dressing c/d/i, mild swelling, no erythema Tenderness lateral hip, pain w ROM, +motor at distal, +sens, +nvi Neg homans - Constitutional no acute distress Results - Labs CBC & Chem 7: 03/08/18 04:22 03/08/18 04:22 Laboratory Results - last 24 hr 03/08/18 03/08/18 04:22 04:22 WBC 11.0 RBC 3.90 L Hgb 12.0 L Hct 35.5 L MCV 91.0 MCH 30.8 MCHC 33.8 RDW 14.6 Plt Count 271 MPV 9.5 Neut % (Auto) 88.1 H Lymph % (Auto) 4.8 L [place] % (Auto) 6.5 Eos % (Auto) 0.2 Baso % (Auto) 0.4 Neut # (Auto) 9.7 H Lymph # (Auto) 0.5 L [place] # (Auto) 0.7 Eos # (Auto) 0.0 Baso # (Auto) 0.0 WBC Differential . Differential Comment Auto diff final Sodium 140 Potassium 4.2 Chloride 107 Carbon Dioxide 25.2 Anion Gap 8 BUN 15 Creatinine 1.14 Estimated GFR 61 L Random Glucose 95 Calcium 8.3 L - Procedures ORIF left hip, percutaneous screws Assessment and Plan - Assessment and Plan Fracture left hip, peritrochanteric/base of the neck femoral neck fracture. Pneumonia. Eliquis anticoagulation for atrial fibrillation. pod#1 s/p ORIF Left Hip, perc screws Ortho stable. Mildly confused. PO pain meds for left hip. Ok to resume eliquis for anticoagulation. PT - TTWBing left LE. Walker assist. Hold dressing changes unless saturated. D/C planning, SNF. F/U in 2 weeks for xrays.
[2018-03-08] MEDS ORDERED: Enoxaparin Inj 40 MG/0.4 ML Syringe SQ SCH (09:00)
[2018-03-08] MEDS: Fenofibrate 48 MG Tablet PO SCH (09:15)
[2018-03-08] MEDS: Multivitamin/Minerals Therapeutic Tablet PO SCH ×2 (09:15→21:04)
[2018-03-08] MEDS: Sertraline 50 MG Tablet PO SCH (09:15)
[2018-03-08] MEDS: Metoprolol Tartrate 25 MG Tablet PO SCH ×2 (09:15→21:04)
--- NOTE | 2018-03-08 11:02 | P.PN ---
Subjective Interval history: FU hip fracture and PNA. Patient s/p Open treatment internal fixation left hip fracture with multiple screws with Maulik Payne MD Patient sitting up in chair offers no complaints at this time Denies fevers, chills, N/V, SOB or chest pain Physical Exam Vital signs: Vital Signs 03/07/18 12:00 03/07/18 17:05 03/07/18 17:15 Temperature 98 F 97.9 F Pulse Rate 84 99 H 88 Respiratory Rate 11 L Blood Pressure 123/63 216/81 H 190/84 H Pulse Oximetry 98 96 95 03/07/18 17:30 03/07/18 17:40 03/07/18 17:45 Temperature Pulse Rate 84 90 83 Respiratory Rate 16 15 15 Blood Pressure 179/80 H 180/89 H 169/78 H Pulse Oximetry 92 L 93 L 94 L 03/07/18 17:50 03/07/18 18:00 03/07/18 18:10 Temperature 97.8 F Pulse Rate 73 74 75 Respiratory Rate 16 16 16 Blood Pressure 157/71 H 149/63 H 141/68 H Pulse Oximetry 94 L 96 95 03/07/18 20:00 03/07/18 21:09 03/07/18 23:45 Temperature 97.8 F 97.8 F Pulse Rate 59 L 70 84 Respiratory Rate 18 16 18 Blood Pressure 135/71 151/70 H Pulse Oximetry 93 L 93 L 03/08/18 04:00 03/08/18 08:47 Temperature 98.4 F Pulse Rate 82 85 Respiratory Rate 18 16 Blood Pressure 152/67 H Pulse Oximetry 94 L Intake & Output 03/07/18 03/08/18 03/08/18 18:59 06:59 18:59 Intake Total 2550 / 2550 200 / 200 Output Total 525 / 525 225 / 225 Balance 2024 / 2024 -25 / -25 Weight 99.7 kg Intake: IV 1999 200 / 200 NS Inj 1,000 ML @ 100 mls/hr IV 1999 .CONT .Q10H MAN Rx#:[id number] Ancef Inj 1,000 MG In NS Inj 200 / 200 100 ML @ 200 mls/hr IV.SIG Q6H MAN Rx#:[id number] Anesthesia Amount 550 / 550 Output: Urine 500 / 500 225 / 225 Estimated Blood Loss Other: Date of Last Bowel Movement 03/06/18 03/04/18 Narrative: GENERAL: This is an elderly 87 year old male patient, well-developed patient, in no apparent distress. CARDIOVASCULAR: Irregularly irregular RESPIRATORY: Clear to auscultation. Breath sounds equal bilaterally. GASTROINTESTINAL: Abdomen soft, non-tender, nondistended. hypoactive bowel sounds MUSCULOSKELETAL: Extremities without clubbing, cyanosis, or edema. NEURO: Awake and Alert. Moves all ext x4 Results - Labs CBC & Chem 7: 03/08/18 04:22 03/08/18 04:22 Laboratory Results - last 24 hr 03/08/18 03/08/18 04:22 04:22 WBC 11.0 RBC 3.90 L Hgb 12.0 L Hct 35.5 L MCV 91.0 MCH 30.8 MCHC 33.8 RDW 14.6 Plt Count 271 MPV 9.5 Neut % (Auto) 88.1 H Lymph % (Auto) 4.8 L [place] % (Auto) 6.5 Eos % (Auto) 0.2 Baso % (Auto) 0.4 Neut # (Auto) 9.7 H Lymph # (Auto) 0.5 L [place] # (Auto) 0.7 Eos # (Auto) 0.0 Baso # (Auto) 0.0 WBC Differential . Differential Comment Auto diff final Sodium 140 Potassium 4.2 Chloride 107 Carbon Dioxide 25.2 Anion Gap 8 BUN 15 Creatinine 1.14 Estimated GFR 61 L Random Glucose 95 Calcium 8.3 L - Procedures ORIF left hip, percutaneous screws Assessment and Plan - Plan Left hip fracture Femur x-ray significant for acute fracture distally of the femoral neck with medial angulation deformity Orthopedic surgery consulted, appreciate assistance, plan for surgery later today s/p Open treatment internal fixation left hip fracture with multiple screws with Maulik Payne MD 03/07/18 IVF for hydration plan to DC once cleared by orthopedic surgery Pneumonia Chest x-ray significant for patchy consolidation of both lungs Initially on Azithromycin/Rocephin transitioned to Levaquin (03/08) Cont DuoNebs Atrial fibrillation, chronic Continue home metoprolol Resume Eliquis (03/08) Hypertension/hyperlipidemia Continue home medications, monitor vitals DVT prophylaxis: Chemical per ortho Discussed Condition With: Patient and Supervising physician Dr. Maldonado
[2018-03-08] MEDS: levoFLOXacin 500 MG Tablet PO SCH (12:00)
[2018-03-09] MEDS: Sod Chloride 0.9% Inj 1,000 ML IV.CONT SCH ×2 (03:03→11:33)
--- NOTE | 2018-03-09 07:24 | P.PNOP ---
Subjective Interval history: Pain controlled. Patient has confusion Physical Exam Vital signs: Vital Signs 03/08/18 08:00 03/08/18 08:47 03/08/18 12:00 Temperature 98 F 97.9 F Pulse Rate 80 85 104 H Respiratory Rate 18 16 20 Blood Pressure 146/56 H 164/77 H Pulse Oximetry 95 96 03/08/18 15:43 03/08/18 16:00 03/08/18 20:00 Temperature 98.0 F 97.8 F Pulse Rate 102 H 102 H 98 H Respiratory Rate 16 18 19 Blood Pressure 173/75 H 145/73 H Pulse Oximetry 97 95 03/08/18 21:26 03/08/18 21:27 03/09/18 00:00 Temperature 97.7 F Pulse Rate 104 H 96 H Respiratory Rate 18 19 Blood Pressure 152/75 H Pulse Oximetry 97 96 03/09/18 04:00 Temperature 97.8 F Pulse Rate 94 H Respiratory Rate 19 Blood Pressure 148/76 H Pulse Oximetry 97 Intake & Output 03/08/18 03/09/18 03/09/18 18:59 06:59 18:59 Intake Total 1000 / 1000 1000 / 1000 Output Total 320 / 320 Balance 1000 / 1000 680 / 680 Weight 99.9 kg Intake: IV 1000 / 1000 1000 / 1000 NS Inj 1,000 ML @ 100 mls/hr IV 1000 / 1000 1000 / 1000 .CONT .Q10H MAN Rx#:[id number] Output: Urine 320 / 320 Other: Date of Last Bowel Movement 03/08/18 Narrative: Left lower extremity: Clean dry dressings intact. Mild swelling. Minimal pain with forward flexion and internal/external rotation of the hip. Distally intact sensation with active dorsiflexion and plantarflexion of foot. Intact distal pulses and capillary refills Results - Labs CBC & Chem 7: 03/08/18 04:22 03/08/18 04:22 - Procedures ORIF left hip, percutaneous screws Assessment and Plan - Assessment and Plan Fracture left hip, peritrochanteric/base of the neck femoral neck fracture. Pneumonia. Eliquis anticoagulation for atrial fibrillation. pod#2 s/p ORIF Left Hip, perc screws Ortho stable. Mildly confused. PO pain meds for left hip. Ok to resume eliquis for anticoagulation. PT - TTWBing left LE. Walker assist. Hold dressing changes unless saturated. D/C planning, SNF. F/U in 2 weeks for xrays.
[2018-03-09] MEDS: Sertraline 50 MG Tablet PO SCH (08:49)
[2018-03-09] MEDS: Fenofibrate 48 MG Tablet PO SCH (08:50)
[2018-03-09] MEDS: Multivitamin/Minerals Therapeutic Tablet PO SCH (08:50)
[2018-03-09] MEDS: Metoprolol Tartrate 25 MG Tablet PO SCH (08:50)
[2018-03-09] MEDS: levoFLOXacin 500 MG Tablet PO SCH (11:33)
--- NOTE | 2018-03-09 13:50 | P.PN ---
Subjective Interval history: Follow up left hip fracture 03/09/18-patient seen and examined; stable and afebrile. pain currently controlled Physical Exam Vital signs: Vital Signs 03/08/18 15:43 03/08/18 16:00 03/08/18 20:00 Temperature 98.0 F 97.8 F Pulse Rate 102 H 102 H 98 H Respiratory Rate 16 18 19 Blood Pressure 173/75 H 145/73 H Pulse Oximetry 97 95 03/08/18 21:26 03/08/18 21:27 03/09/18 00:00 Temperature 97.7 F Pulse Rate 104 H 96 H Respiratory Rate 18 19 Blood Pressure 152/75 H Pulse Oximetry 97 96 03/09/18 04:00 03/09/18 08:00 03/09/18 10:21 Temperature 97.8 F 97.5 F L Pulse Rate 94 H 103 H 103 H Respiratory Rate 19 18 12 Blood Pressure 148/76 H 170/83 H Pulse Oximetry 97 94 L 97 03/09/18 12:00 Temperature 98.3 F Pulse Rate 96 H Respiratory Rate 19 Blood Pressure 156/67 H Pulse Oximetry 95 Intake & Output 03/08/18 03/09/18 03/09/18 18:59 06:59 18:59 Intake Total 1000 / 1000 1000 / 1000 1000 / 1000 Output Total 880 / 880 Balance 1000 / 1000 120 / 120 1000 / 1000 Weight 99.9 kg Intake: IV 1000 / 1000 1000 / 1000 1000 / 1000 NS Inj 1,000 ML @ 100 mls/hr IV 1000 / 1000 1000 / 1000 1000 / 1000 .CONT .Q10H MAN Rx#:[id number] Output: Urine 880 / 880 Other: Date of Last Bowel Movement 03/08/18 03/06/18 Narrative: GENERAL: NAD SKIN: Warm and dry. HEAD: Normocephalic. EYES: No scleral icterus. No injection or drainage. NECK: Supple, trachea midline. No JVD or lymphadenopathy. CARDIOVASCULAR: Regular rate and rhythm without murmurs, gallops, or rubs. RESPIRATORY: Breath sounds equal bilaterally. No accessory muscle use. GASTROINTESTINAL: Abdomen soft, non-tender, nondistended. MUSCULOSKELETAL: No cyanosis, or edema. BACK: Nontender without obvious deformity. No CVA tenderness. Results - Labs CBC & Chem 7: 03/08/18 04:22 03/08/18 04:22 - Procedures ORIF left hip, percutaneous screws Assessment and Plan - Plan 87-year-old man with Left hip fracture Femur x-ray significant for acute fracture distally of the femoral neck with medial angulation deformity Orthopedic surgery consulted, appreciate assistance, plan for surgery later today s/p Open treatment internal fixation left hip fracture with multiple screws with Maulik Payne MD 03/07/18 Pneumonia Chest x-ray significant for patchy consolidation of both lungs Currently on Levaquin (03/08) Cont DuoNebs Atrial fibrillation, chronic Continue home metoprolol Continue Eliquis (03/08) Hypertension/hyperlipidemia Continue home medications, monitor vitals DVT prophylaxis: Chemical per ortho
--- NOTE | 2018-03-09 15:29 | P.DS ---
Date of admission: 03/06/18 20:52 Primary care physician: Jigna Harrison MD Anticipated date of discharge: 03/09/18 Brief History from admission: 87-year-old male with a past medical history significant for hypertension, atrial fibrillation anticoagulated on Eliquis and hyperlipidemia presents to the emergency department for the evaluation of a fall. The patient reports that he tripped and fell landing on his left hip. He denies any head or neck trauma. No numbness or tingling of the extremities. Complains of severe pain in his left hip. Denies chest pain or shortness of breath. No abdominal pain. No nausea/vomiting/diarrhea. No fever/chills. DS: Diagnosis - Discharge Diagnosis (1) Femur fracture, left Status: Acute (2) Pneumonia Status: Acute DS: Summary Hospital Course: Left hip fracture Femur x-ray significant for acute fracture distally of the femoral neck with medial angulation deformity Orthopedic surgery consulted, appreciate assistance, plan for surgery later today s/p Open treatment internal fixation left hip fracture with multiple screws with Maulik Payne MD 03/07/18 Pneumonia Chest x-ray significant for patchy consolidation of both lungs Currently on Levaquin (03/08) Cont DuoNebs Atrial fibrillation, chronic Continue home metoprolol Continue Eliquis (03/08) Hypertension/hyperlipidemia Continue home medications, monitor vitals DVT prophylaxis: Chemical per ortho - Time Spent with Patient Total time spent providing and/or coordinating discharge services: Greater than 30 minutes - Quality: VTE Deep Vein Thrombosis/Pulmonary Embolism Present on Admission: No Exam Vital signs: Vital Signs 03/08/18 15:43 03/08/18 16:00 03/08/18 20:00 Temperature 98.0 F 97.8 F Pulse Rate 102 H 102 H 98 H Respiratory Rate 16 18 19 Blood Pressure 173/75 H 145/73 H Pulse Oximetry 97 95 03/08/18 21:26 03/08/18 21:27 03/09/18 00:00 Temperature 97.7 F Pulse Rate 104 H 96 H Respiratory Rate 18 19 Blood Pressure 152/75 H Pulse Oximetry 97 96 03/09/18 04:00 03/09/18 08:00 03/09/18 10:21 Temperature 97.8 F 97.5 F L Pulse Rate 94 H 103 H 103 H Respiratory Rate 19 18 12 Blood Pressure 148/76 H 170/83 H Pulse Oximetry 97 94 L 97 03/09/18 12:00 Temperature 98.3 F Pulse Rate 96 H Respiratory Rate 19 Blood Pressure 156/67 H Pulse Oximetry 95 Intake & Output 03/08/18 03/09/18 03/09/18 18:59 06:59 18:59 Intake Total 1000 / 1000 1000 / 1000 1000 / 1000 Output Total 880 / 880 Balance 1000 / 1000 120 / 120 1000 / 1000 Weight 99.9 kg Intake: IV 1000 / 1000 1000 / 1000 1000 / 1000 NS Inj 1,000 ML @ 100 mls/hr IV 1000 / 1000 1000 / 1000 1000 / 1000 .CONT .Q10H MAN Rx#:[id number] Output: Urine 880 / 880 Other: Date of Last Bowel Movement 03/08/18 03/06/18 Narrative: GENERAL: NAD SKIN: Warm and dry. HEAD: Normocephalic. EYES: No scleral icterus. No injection or drainage. NECK: Supple, trachea midline. No JVD or lymphadenopathy. CARDIOVASCULAR: Regular rate and rhythm without murmurs, gallops, or rubs. RESPIRATORY: Breath sounds equal bilaterally. No accessory muscle use. GASTROINTESTINAL: Abdomen soft, non-tender, nondistended. MUSCULOSKELETAL: No cyanosis, or edema. BACK: Nontender without obvious deformity. No CVA tenderness. Results Procedures completed during hospitalization: ORIF left hip, percutaneous screws - Impressions ITS Impressions Chest X-Ray 03/06/18 18:37 CONCLUSION: Patchy parenchymal consolidation of both lungs, upper lobe predominant on the right and more generalized but with a basilar predominance on the left. Femur X-Ray 03/06/18 18:37 CONCLUSION: Acute fracture distally of the femoral neck with medial angulation deformity. Pelvis X-Ray 03/06/18 18:37 CONCLUSION: Intact pelvis. Discharge Plan - Discharge Disposition Patient Disposition: 03 Discharge to SNF - Discharge Condition Condition: Stable - Discharge Order Discharge Orders: Discharge Order (Routine); Ordered 03/09/18 Ordered By: Andrzej Grey Orthopedic Clear for Discharge (Routine); Ordered 03/09/18 Ordered By: Kalyan Tijerina - Physicians Team Primary Care Provider: Jigna Harrison Attending Provider: Andrzej Grey Other Providers: Maulik Payne MD
--- NOTE | 2018-03-13 11:08 | XR ---
EXAM DATE: 03/07/2018 5:27 PM EDT AGE/SEX: 87 years / Male INDICATIONS: ORIF of left hip done in the operating room. CLINICAL DATA: This is the patient's initial encounter. Patient reports that signs and symptoms have been present for 1 day and indicates a pain score of Nonresponsive. MEDICAL/SURGICAL HISTORY: None. None. COMPARISON: [facility] [place] 2[place], 03/06/2018. . FINDINGS: Interim fixation of left femoral neck fracture with 3 screws. Alignment is near-anatomic. No new frac ture. No subluxation. CONCLUSION: Screw fixation of the left femoral neck fracture in near-anatomic alignment. No acute complication de monstrated. Electronically signed by: Elder Woodward MD 03/07/2018 5:30 PM EDT
== END 2018-03-09 17:15 ==
LOC: NEPC 18:18 → NEDA 20:52 → N06 03-07 01:07
PROVIDERS: ADMIT Hospitalist; ATTEND Hospitalist
PROC: ORIFHIP (2018-03-07 15:34)